=== PATIENT | female | born 1970 | race African-American/Black ===

== ENCOUNTER 2017-08-26 08:47 | Emergency (ER) | payer OTHER ==
[~2017-08-26] VITALS: Ht 180.3 cm; Wt 127.0 kg
[~2017-08-26 08:47] MED LIST: ALBU8I INH; BENZ100 PO; CYCL-36 PO; GUAI100S6 PO; MEDR4PAK3 PO; WATER PILL?; ZITH250T PO; [UNRECOGNIZED DRUG - REMARK]
[2017-08-26 08:51] VITALS: BP 185/100; PULSE 91; RESP 16; TEMP 98.5; O2SAT 99
[2017-08-26] MEDS ORDERED: PROV10TA PO (09:30)
--- NOTE | 2017-08-26 09:47 | PD ---
HPI Chief Complaint: Clinical Laboratory Aide Problem/Complaint Time Seen by Provider: 09:25 Travel History International Travel<30 days: Yes Contact w/Intl Traveler<30days: Yes Name of Country Traveled to: [facility] Traveled to known affect area: No History of Present Illness HPI The patient was seen and examined in the presence of the nurse. This patient complains of pain in a ringlike distribution including bilateral lower quadrants and bilateral low back. Worse with position change. Duration 4 days. No injury. No fever. No vomiting or diarrhea or vaginal discharge or vaginal bleeding. She has known 2 large fibroids which caused her some pain but she thinks this is different and unrelated. Severity is moderate. No alleviating factors. No exacerbating factors. PFSH Past Medical History Hx Anticoagulant Therapy: No Cancer: No Cardiovascular Problems: Yes (hypertension) Chemotherapy: No Cerebrovascular Accident: No Diabetes: No Diminished Hearing: No Glaucoma: No Hepatitis: No Hiatal Hernia: No Hypertension: Yes Medical other: Yes Musculoskeletal: Yes (herniated disc, stenosis, lumbar problem, sciatica) Reproductive: Yes (cervical tear) Respiratory: No Thyroid Disease: No Tetanus Vaccination: < 5 Years Influenza Vaccination: No ?: Not LMP: 07/01/17 : 5 Para: 3 Miscarriage: 1 : 1 Ectopic : Yes (1 RIGHT TUBE REMOVED) Tubal Ligation: Yes Past Surgical History Abdominal Surgery: No Cardiac Surgery: No Section: Yes Ear Surgery: No Endocrine Surgery: No Eye Surgery: No Genitourinary Surgery: No Gynecologic Surgery: Yes Hysterectomy: No Oral Surgery: No Pacemaker: No Thoracic Surgery: No Other Surgery: Yes Social History Alcohol Use: Yes (occass) Tobacco Use: No Substance Use: No Allergies-Medications (Allergen,Severity, Reaction): Coded Allergies: ipratropium (Unverified Allergy, Severe, SOB, 08/26/17) peach (Unverified Allergy, Severe, Rash, 08/26/17) shellfish derived (Unverified Allergy, Severe, SOB, 08/26/17) tree nut (Unverified Allergy, Severe, Shortness of Breath, 08/26/17) Reported Meds & Prescriptions Reported Meds & Active Scripts Active Tramadol (Tramadol HCl) 50 Mg Tab 50 Mg PO Q6H PRN Reported Provera (Medroxyprogesterone Acetate) 10 Mg Tab 10 Mg PO DAILY Start day 21 Review of Systems General / Constitutional: No: Fever Eyes: No: Visual changes HENT: No: Headaches Cardiovascular: No: Chest Pain or Discomfort Respiratory: No: Shortness of Breath Gastrointestinal: Positive: Abdominal Pain Genitourinary: No: Dysuria Musculoskeletal: Positive: Pain Skin: No Rash Neurologic: No: Weakness Psychiatric: No: Depression Endocrine: No: Polydipsia Hematologic/Lymphatic: No: Easy Bruising Physical Exam Narrative GENERAL: Well-nourished, well-developed patient in no apparent distress. SKIN: Focused skin assessment reveals no rash and nodules. Skin is Warm and dry. HEAD: Atraumatic. Normocephalic. EYES: Pupils equal and round. No scleral icterus. No injection or drainage. ENT: No nasal bleeding or discharge. Mucous membranes pink and moist. NECK: Trachea midline. No JVD. CARDIOVASCULAR: Regular rate and rhythm. No murmur appreciated. RESPIRATORY: No accessory muscle use. Clear to auscultation. Breath sounds equal bilaterally. GASTROINTESTINAL: Abdomen soft, non-tender, nondistended. Hepatic and splenic margins not palpable. MUSCULOSKELETAL: No obvious deformities. No clubbing. No cyanosis. No edema. NEUROLOGICAL: Awake and alert. No obvious cranial nerve deficits. Motor grossly within normal limits. Normal speech. PSYCHIATRIC: Appropriate mood and affect; insight and judgment normal. Data Data Last Documented VS Vital Signs Date Time Temp Pulse Resp B/P (MAP) Pulse Ox O2 Delivery O2 Flow Rate FiO2 08/26/17 10:59 73 15 146/77 (100) 97 Room Air 08/26/17 08:[address] Abd/Pel W/O Iv Contrast (08/26/17 ) Ed Urine Pregnancytest Poc (08/26/17 09:38) Urinalysis - C+S If Indicated (08/26/17 09:47) Labs Laboratory Tests Test 08/26/17 09:40 Urine Collection Type CLEAN CATCH Urine Color YELLOW Urine Turbidity CLEAR Urine pH 5.5 Urine Specific [place] 1.022 Urine Protein NEG mg/dL Urine Glucose (UA) NEG mg/dL Urine Ketones NEG mg/dL Urine Occult Blood LARGE Urine Nitrite NEG Urine Bilirubin NEG Urine Leukocyte Esterase NEG Urine RBC 20-24 /hpf Urine WBC 0-2 /hpf Urine Squamous Epithelial Cells 0-5 /hpf Microscopic Urinalysis Comment CULT NOT INDICATED Urine Collection Time 09:40 MDM Medical Decision Making Medical Screen Exam Complete: Yes Emergency Medical Condition: Yes Medical Record Reviewed: Yes Differential Diagnosis Fibroid pain, ovarian cystic disease, sciatica Narrative Course I have reviewed the patient's electronic medical record. Urinalysis shows some hematuria without infection Urine is negative Discussed imaging risks and benefits and alternatives with the patient. She wants some degree of imaging done. sHe had an ultrasound 2 months ago so we will try CT CT results discussed with her. Fibroid is seen. Left adnexal mass seen and I discussed that with her. She should discuss with her daytime babysitter. Some tramadol written Diagnosis Primary Impression: Pelvic pain in female Additional Impression: Back pain Qualified Codes: M54.5 - Low back pain Additional Instructions: The patient was advised to follow up with their physician and return if they worsen. The patient was warned about potential sedation for the medications they will receive on prescription. Med/Other Pt SpecificInfo: Prescription(s) given Scripts Tramadol (Tramadol) 50 Mg Tab 50 MG PO Q6H Y for PAIN, #20 TAB 0 Refills Prov: Silvino Currie MD 08/26/17 Disposition: 01 DISCHARGE HOME Condition: Stable Silvino Currie MD Aug 26, 2017 09:46
--- NOTE | 2017-08-26 10:01 | RADRPT ---
EXAM DATE/TIME: 08/26/2017 09:43 [facility] COMPARISON: No previous studies available for comparison. INDICATIONS : Bilateral lower quadrant pain x 4 days. Evaluate for renal calculi. ORAL CONTRAST: No oral contrast ingested. RADIATION DOSE: 24.99 CTDIvol (mGy) MEDICAL HISTORY : Hypertension. SURGICAL HISTORY : section. Tubal ligation. ENCOUNTER: Initial ACUITY: 4 - 6 days PAIN SCALE: 10/10 LOCATION: Bilateral lower quadrant TECHNIQUE: Volumetric scanning of the abdomen and pelvis was performed. Using automated exposure control and ad justment of the mA and/or kV according to patient size, radiation dose was kept as low as reasonably achievable to obtain optimal diagnostic quality images. DICOM format image data is available electro nically for review and comparison. FINDINGS: Lung base clear. Liver contains scattered granulomas. Spleen, pancreas are unremarkable Both adrenal glands are prominent Right kidney: There are no calcifications in the right kidney or along the expected course of the right ureter. Left kidney: There no calcifications in the left kidney. There no calcification along expected course of the left ureter. There is no retroperitoneal adenopathy Gas pattern is unremarkable The abdominal conde intact In the pelvis there is prominent fibroid uterus with 3.4 cm cystic mass right adnexal region. The le ft adnexa is unremarkable Scattered phleboliths are present in the pelvis There is no free fluid. CONCLUSION: 1. Fibroid uterus with 3.4 center cystic mass right adnexa region. 2. No free fluid in the pelvis 3. Negative for stone or obstruction 4. Scattered phleboliths in the pelvis. Joel Cedeno MD FACR on August 26, 2017 at 9:56 Board Certified Radiologist. This report was verified electronically.
[2017-08-26 10:13] LABS: BILIRUBIN, URINE NEG (NEG); BLOOD, URINE LARGE (NEG); GLUCOSE,URINE NEG (NEG); KETONE, URINE NEG (NEG); NITRITE,URINE NEG (NEG); PH, URINE 5.5 (5.0-8.5); URINE LEUKOCYTE ESTERASE NEG (NEG)
[2017-08-26 10:43] LABS: SQUAMOUS EPITHELIAL CELL URINE 0-5 /hpf (0-5); URINE COLOR YELLOW (YELLW/STRAW); WBC, URINE 0-2 /hpf (0-5)
[2017-08-26 10:59] VITALS: BP 146/77; PULSE 73; RESP 15; O2SAT 97
[2017-08-26] MEDS ORDERED: TRAM50TA PO (12:24)
[2017-08-26 12:38] VITALS: BP 143/99
== END 2017-08-26 12:40 | disposition home or self-care (01) ==
LOC: PHED 08:47
DX: R10.2 Pelvic and perineal pain (principal); D25.9 Leiomyoma of uterus, unspecified; I87.8 Other specified disorders of veins; M54.9 Dorsalgia, unspecified; I10 Essential (primary) hypertension; Z79.899 Other long term (current) drug therapy; Z88.8 Allergy status to other drugs, medicaments and biological substances
CPT/HCPCS: 74176; 81001; 84703; 99284

== ENCOUNTER 2018-01-09 05:41 | Inpatient (IN) | END 2018-01-11 09:50 | disposition home or self-care (01) | DRG 743 | DX: N92.0 Excessive and frequent menstruation with regular cycle (principal); E66.01 Morbid (severe) obesity due to excess calories; D25.9 Leiomyoma of uterus, unspecified; N73.6 Female pelvic peritoneal adhesions (postinfective); Z68.39 Body mass index [BMI] 39.0-39.9, adult ==